=== PATIENT | male | born 1975 | race Caucasian/White ===

== ENCOUNTER 2022-08-26 10:33 | Emergency (ER) | payer SELFPAY ==
[2022-08-26 10:39] VITALS: BP 146/76; PULSE 82; RESP 18; TEMP 36.6; O2SAT 97
--- NOTE | 2022-08-26 11:00 | W.ED.PSYCHS ---
HPI - Psych General: Chief Complaint: Psychiatric Symptoms Stated Complaint: psych eval Time Seen by Provider: 08/26/22 11:00 Source: patient Mode of arrival: ambulatory History of Present Illness: 46-year-old male presents emergency room complaining of feeling overwhelmed. He feels like he is going to snap if he is relates that he is very short tempered. He denies any suicidal or homicidal ideation. MD complaint: feels depressed Onset (ago): month(s) Duration: constant History of same: Yes Relieving factors: none Exacerbating factors: none Associated symptoms: Reports depression; Deny auditory hallucinations, visual hallucinations, delusions, homicidal ideation, suicidal ideation or racing thoughts Review of Systems Const: Denies: fever(s), chills, body aches, change in appetite, fatigue or malaise ENMT: Denies: throat pain, ear or mastoid pain, nasal discharge or nasal congestion Card: Denies: chest pain, edema, dyspnea on exertion or orthopnea Resp: Denies: dyspnea, productive cough or non-productive cough GI: Denies: abdominal pain, nausea, vomiting, hematemesis, coffee ground emesis, diarrhea, constipation, bloating, hematochezia or melena : Denies: flank pain, difficulty urinating, dysuria, urinary frequency or urinary urgency Musc: Reports: neck pain Skin/Breast: Denies: rash or pruritus Psych: Reports: depression; Denies: visual hallucinations, auditory hallucinations, suicidal ideation or homicidal ideation [facility] ED PFSH: Medical History Allergic dermatitis due to poison tom Obesity (BMI 30.0-34.9) Surgical History H/O knee surgery History of cranioplasty Social History Smoking and tobacco status: never smoked Alcohol intake: current Alcohol intake frequency: few times a week Marital status: Single Number of children: 0 Current occupational status: employed Current gender identity: Male Physical Exam Const: GENERAL APPEARANCE: cooperative and comfortable ORIENTATION/CONSCIOUSNESS: Yes awake, Yes oriented to person, Yes oriented to place and Yes oriented to time HENMT: COMMON NORMALS: normocephalic, atraumatic and hearing grossly normal bilaterally HEAD & SCALP: normocephalic and atraumatic Resp: COMMON NORMALS: normal respiratory effort, No retractions, No use of accessory muscles and clear to auscultation bilaterally AUSCULTATION: clear to auscultation bilaterally Cardio: COMMON NORMALS: regular rate, regular rhythm and No murmurs present (Cardio) RATE: regular rate RHYTHM: regular rhythm GI: COMMON NORMALS: Soft to palpation and No hepatosplenomegaly present AUSCULTATION: Yes normoactive bowel sounds PALPATION: Yes Soft to palpation, No Tenderness to palpation present (GI), No Guarding due to palpation present (GI) and Yes No hepatosplenomegaly present Extremity: COMMON NORMALS: normal to inspection, capillary refill normal, no clubbing, cyanosis or edema, no calf tenderness and no pedal edema Neuro: SENSORIUM/ORIENTATION: Yes oriented to person, Yes oriented to place and Yes oriented to time OTHER: BrachialDeep tendon reflexes 1 of 4 at the radialis unable to elicit the triceps on either left or right. 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 Patient has limited range of motion in the neck due to discomfort. Negative Spurling's maneuver Psych: THOUGHT CONTENT: No delusions Skin: COMMON NORMALS: no rashes or lesions noted GENERAL SKIN EXAM: no rashes or lesions noted Course Vital Signs: Vital signs: Vital Signs Temperature 97.8 F 08/26/22 10:39 Pulse Rate 90 08/26/22 11:32 Respiratory Rate 18 08/26/22 11:32 Blood Pressure 136/92 08/26/22 11:32 Pulse Oximetry 97 08/26/22 11:32 Oxygen Delivery Me thod 08/26/22 10:39 [facility] - Psych Medical Decision Making Patient repeatedly denies suicidal or homicidal ideation. He mostly really needs access to different services. [facility] since then he has been having difficult time adjusting does not a very good place to stay his neck is sore because been sleeping on the floor for the last several weeks. Given anti-inflammatory muscle relaxer to use for his neck and we will discharge him from the emergency room have him go to crisis stabilization we have contacted them they will see if they can help find him access to services to them alleviate some of the issues he has at this point. He has no acute medical diagnosis at this time that would require hospitalization. Medical Records I reviewed the patient's medical records. Lab Data I reviewed the patient's lab results. Discharge Plan Discharge Patient Disposition: Home Clinical Impression: Cervicalgia, Acute anxiety Condition: Stable Prescriptions: New diclofenac sodium 75 mg tablet,delayed release (DR/EC) 75 mg PO Q12H PRN (Reason: pain) Qty: 20 0RF cyclobenzaprine 10 mg tablet 10 mg PO TID PRN (Reason: muscle spasm) Qty: 30 0RF No Action prednisone 20 mg tablet 60 mg PO DAILY Qty: 15 0RF diphenhydramine HCl 50 mg capsule 50 mg PO Q6H PRN (Reason: itching) Qty: 20 0RF Discharge Orders: Discharge ED (Routine); Ordered 08/26/22 Ordered By: Jenaro Lombardo Discharge Diet: Usual diet Discharge Activity: Increase activity as tolerated Patient Instructions: Opioid Safety, Pain Management Activity Restrictions/Additional Instructions: You are seen today for neck pain. On exam this appears musculoskeletal. You are given the medications above diclofenac and cyclobenzaprine to use as needed to relieve discomfort. For the other issues of concern that you raised we will discharge you from the emergency room and staff will bring into the crisis stabilization unit where they can help you access services to deal with these problems. Coding Level of Care Code ED Lighting Designer for Jing Hector
[2022-08-26 11:32] VITALS: BP 136/92; PULSE 90; RESP 18; O2SAT 97
== END 2022-08-26 11:33 | disposition home or self-care (01) ==
PROVIDERS: Emergency Provider Family Medicine
DX: M54.2 Cervicalgia (principal); F41.9 Anxiety disorder, unspecified
CPT/HCPCS: 99284